=== PATIENT | male | born 2000 | race Caucasian/White ===

== ENCOUNTER 2021-10-02 14:00 | Emergency (ER) | payer BC ==
[~2021-10-02] VITALS: Ht 175.3 cm; Wt 70.5 kg
[2021-10-02 14:22] VITALS: BP 133/91; TEMP 99.3
[2021-10-02] MEDS ORDERED: CEPHALEXIN500 M1 PO (17:12)
[2021-10-02 17:46] VITALS: PULSE 85
== END 2021-10-02 17:46 | disposition home or self-care (01) ==
LOC: COL.ER 14:00
DX: S61.333A Puncture wound without foreign body of left middle finger with damage to nail, initial encounter (principal); Z88.2 Allergy status to sulfonamides; Z23 Encounter for immunization; Z28.310 Unvaccinated for COVID-19; W45.8XXA Other foreign body or object entering through skin, initial encounter